=== PATIENT | female | born 1995 | race Caucasian/White ===

== ENCOUNTER 2017-08-01 06:43 | Inpatient (IN) ==
[2017-08-01] MEDS ORDERED: CITRIC ACID/SODIUM CITRATE 30 ML UDCUP PO ONE (07:31)
[2017-08-01] MEDS ORDERED: ceFAZolin 2,000 MG in PREMIX 1 EACH IV ONE (07:31)
[2017-08-01] MEDS ORDERED: FAMOTIDINE 20 MG/2 ML VIAL IV ONE (07:31)
[2017-08-01] MEDS: LACTATED RINGERS 1,000 ML IV SCH ×2 (07:33→08:05)
[2017-08-01] MEDS ORDERED: OXYTOCIN/LR 20 UNIT/1,000 ML BAG IV ONE ×2 (07:38→09:15)
[2017-08-01 08:02] LABS: Basophils % 0.1 % (0.0-0.8); Eosinophils % 0.3 % (0.00-10.9); Hematocrit 34.4 VOL% (35.7-47.0); Hemoglobin 11.4 GM/DL (12.0-16.0); Immature Granulocytes % 0.5 %; Immature Granulocytes Absolute 0.04 #; Lymphocytes # 1.7 10*3/uL (1.4-4.0); Lymphocytes % 21.9 % (21.3-54.2); Mean Corpuscular HGB Conc 33.1 GM/DL (32-36); Mean Corpuscular Hemoglobin 30 PG (27-34); Mean Corpuscular Volume 90.5 FL (87-102); Mean Platelet Volume 11.8 FL (9.6-12.0); Monocytes # 0.5 10*3/uL (0.11-0.8); Monocytes % 5.9 % (1.7-12.7); Neutrophils # 5.5 10*3/uL (1.4-7.4); Neutrophils % 71.3 % (38.7-73.9); Platelet Count 145 T/CUMM (130-400); Red Cell Distribution Width 13.2 % (9.3-17.3); White Blood Count 7.8 T/CUMM (4-12)
[2017-08-01 08:41] LABS: Alanine Aminotransferase 13 U/L (13-56); Albumin 2.5 G/DL (3.4-5.0); Alkaline Phosphatase 122 U/L (45-117); Aspartate Amino Transferase 27 U/L (0-37); Bilirubin,Total < 0.39 MG/DL (0.2-1.0); Blood Urea Nitrogen 4 MG/DL (7-18); Calcium 8.1 MG/DL (8.5-10.1); Glucose 76 MG/DL (74-106); Osmolality,Calculated 272.5 MOS/KG (273-304); Sodium 139 MMOL/L (136-145); Total Protein 5.7 G/DL (6.4-8.3)
[2017-08-01] MEDS ORDERED: RHO(D) IMMUNE GLOBULIN 300 MCG SYRINGE IM ONE (09:15)
[2017-08-01] MEDS ORDERED: ONDANSETRON 4 MG/2 ML VIAL IV PRN ×2 (09:15→09:29)
[2017-08-01] MEDS ORDERED: ACETAMINOPHEN 325 MG TABLET PO PRN (09:15)
[2017-08-01] MEDS ORDERED: hydrOXYzine HCL 25 MG/1 ML VIAL IM PRN (09:29)
[2017-08-01] MEDS ORDERED: diphenhydrAMINE 50 MG/1 ML VIAL IV PRN (09:29)
[2017-08-01] MEDS ORDERED: LACTATED RINGERS 1,000 ML IV SCH (09:30)
[2017-08-01] MEDS ORDERED: fentaNYL 100 MCG/2 ML VIAL ONE (09:31)
[2017-08-01] MEDS ORDERED: MORPHINE 10 MG/10 ML VIAL ONE (09:32)
[2017-08-01] MEDS ORDERED: MIDAZOLAM 2 MG/2 ML VIAL ONE (09:32)
[2017-08-01 10:09] LABS: Apearance,Urine CLEAR (Clear); Bilirubin,Urine Negative (Negative); Blood, Urine Negative (Negative); Glucose,Urine (UA) Negative (Negative); Ketones,Urine 5 mg/dL (Negative); Nitrite,Urine Negative (Negative); Protein,Urine Negative; RBC,Urine 1 /HPF (0-4); Urine Color Straw (Yellow); Urine Specific Gravity 1.003 (1.001-1.035); Urine Urobilinogen < 2.0 EU/DL (0.2-1.0); WBC,Urine <1 /HPF (0-6)
[2017-08-01] MEDS: HYDROmorphone 2 MG/1 ML VIAL IV PRN ×4 (12:00→20:10)
[2017-08-01] MEDS: ceFAZolin 1,000 MG in SYRINGE 1 EACH IV SCH ×2 (17:14→17:20)
[2017-08-01] MEDS: diphenhydrAMINE 50 MG/1 ML VIAL IV PRN (20:17)
[2017-08-01] MEDS: DOCUSATE SODIUM 100 MG CAPSULE PO SCH (22:46)
[2017-08-02] MEDS: HYDROmorphone 2 MG/1 ML VIAL IV PRN (00:09)
[2017-08-02] MEDS: diphenhydrAMINE 50 MG/1 ML VIAL IV PRN (00:12)
[2017-08-02] MEDS ORDERED: ceFAZolin 1,000 MG in SYRINGE 1 EACH IV ONE (01:00)
[2017-08-02] MEDS: IBUPROFEN 800 MG TABLET PO PRN ×2 (03:18→19:59)
[2017-08-02 06:21] LABS: Basophils % 0.1 % (0.0-0.8); Eosinophils % 0.4 % (0.00-10.9); Hematocrit 32.7 VOL% (35.7-47.0); Hemoglobin 11.1 GM/DL (12.0-16.0); Immature Granulocytes % 0.4 %; Immature Granulocytes Absolute 0.03 #; Lymphocytes # 1.5 10*3/uL (1.4-4.0); Lymphocytes % 17.5 % (21.3-54.2); Mean Corpuscular HGB Conc 33.9 GM/DL (32-36); Mean Corpuscular Hemoglobin 31 PG (27-34); Mean Corpuscular Volume 89.8 FL (87-102); Mean Platelet Volume 11.9 FL (9.6-12.0); Monocytes # 0.7 10*3/uL (0.11-0.8); Monocytes % 8.1 % (1.7-12.7); Neutrophils # 6.3 10*3/uL (1.4-7.4); Neutrophils % 73.5 % (38.7-73.9); Platelet Count 174 T/CUMM (130-400); Red Blood Count 3.64 MC/CUMM (3.8-5.5); Red Cell Distribution Width 13.3 % (9.3-17.3); White Blood Count 8.5 T/CUMM (4-12)
[2017-08-02] MEDS: DOCUSATE SODIUM 100 MG CAPSULE PO SCH ×3 (09:11→21:47)
[2017-08-02] MEDS: MULTIVITAMIN (PRENATAL) TABLET PO SCH (09:11)
[2017-08-02] MEDS: MAGNESIUM HYDROXIDE SUSP 30 ML UDCUP PO PRN (19:58)
[2017-08-03] MEDS ORDERED: oxyCODONE/ACETAMINOPHEN 5-325 MG TABLET PO PRN (08:28)
[2017-08-03] MEDS: SIMETHICONE CHEW 80 MG TABLET PO PRN ×2 (08:44→14:37)
[2017-08-03] MEDS: MAGNESIUM HYDROXIDE SUSP 30 ML UDCUP PO PRN ×2 (08:44→19:29)
[2017-08-03] MEDS: oxyCODONE/ACETAMINOPHEN 5-325 MG TABLET PO PRN ×3 (08:45→21:19)
[2017-08-03] MEDS: MULTIVITAMIN (PRENATAL) TABLET PO SCH (08:46)
[2017-08-03] MEDS: DOCUSATE SODIUM 100 MG CAPSULE PO SCH ×3 (08:46→23:45)
[2017-08-03] MEDS: IBUPROFEN 800 MG TABLET PO PRN (19:29)
[2017-08-04] MEDS: IBUPROFEN 800 MG TABLET PO PRN (03:55)
[2017-08-04] MEDS: oxyCODONE/ACETAMINOPHEN 5-325 MG TABLET PO PRN ×2 (03:55→09:52)
[2017-08-04] MEDS: LACTATED RINGERS 1,000 ML IV SCH (06:14)
[2017-08-04 08:55] VITALS: BP 123/71
[2017-08-04] MEDS: MULTIVITAMIN (PRENATAL) TABLET PO SCH (09:48)
[2017-08-04] MEDS: MAGNESIUM HYDROXIDE SUSP 30 ML UDCUP PO PRN (09:48)
[2017-08-04] MEDS: DOCUSATE SODIUM 100 MG CAPSULE PO SCH (09:49)
[2017-08-04] MEDS: SIMETHICONE CHEW 80 MG TABLET PO PRN (09:49)
[2017-08-04] MEDS ORDERED: WITCH HAZEL PADS 100/JAR TOP PRN (12:07)
[2017-08-04] MEDS ORDERED: DIBUCAINE 1% OINT 28 GM TUBE TOP PRN (12:08)
== END 2017-08-04 12:20 | disposition home or self-care (01) | DRG 540 ==
LOC: N.LDOUT 06:43 → N.LD 06:46 → N.OB 11:36
PROVIDERS: ADMIT Obstetrics & Gynecology; ATTEND Obstetrics & Gynecology
PROC: LDCSECT (ICD-10-PCS; 2017-08-01 08:00)